=== PATIENT | male | born 1980 | race Caucasian/White ===

== ENCOUNTER 2021-10-18 21:37 | Emergency (ER) | payer SELFPAY ==
[~2021-10-18] VITALS: Ht 175 cm; Wt 81.6 kg
[2021-10-18 21:45] VITALS: BP 106/86
[2021-10-18] MEDS ORDERED: NS IV 1000 ML 1,000 ML IV SCH (22:00)
[2021-10-18] MEDS ORDERED: ACETAMINOPHEN 325 MG TABLET PO ONE (22:00)
[2021-10-18 22:08] LABS: BASOPHILS # (AUTO) 0.1 10^3/uL (0.0-0.1); BASOPHILS % (AUTO) 1 % (0-10); EOSINOPHILS # (AUTO) 0.1 10^3/uL (0.0-0.3); EOSINOPHILS % (AUTO) 0 % (0-10); HEMATOCRIT 43 % (40-54); HEMOGLOBIN 15.3 g/dL (13.3-17.7); LYMPHOCYTES # (AUTO) 1.1 10^3/uL (1.0-4.0); LYMPHOCYTES % (AUTO) 6 % (12-44); MEAN CORPUSCULAR HEMOGLOBIN 31 pg (25-34); MEAN CORPUSCULAR HGB CONC 35 g/dL (32-36); MEAN CORPUSCULAR VOLUME 87 fL (80-99); MEAN PLATELET VOLUME 10.5 fL (9.0-12.2); MONOCYTES # (AUTO) 1.7 10^3/uL (0.0-1.0); MONOCYTES % (AUTO) 9 % (0-12); NEUTROPHILS # (AUTO) 16.5 10^3/uL (1.8-7.8); NEUTROPHILS % (AUTO) 82 % (42-75); PLATELET COUNT 254 10^3/uL (130-400)
[2021-10-18 22:34] LABS: BAND NEUTROPHILS 12 %; BASOPHILS % (MANUAL) 0 %; EOSINOPHILS % (MANUAL) 0 %; LYMPHOCYTES % (MANUAL) 12 %; MONOCYTES % (MANUAL) 11 %; NEUTROPHILS % (MANUAL) 65 %; TOXIC GRANULATION/VACUOLAZATIO 1+
[2021-10-18 22:35] LABS: PROTHROMBIN TIME PATIENT 13.2 SEC (12.2-14.7)
[2021-10-18] MEDS ORDERED: NS IV 1000 ML 1,000 ML IV STA (22:41)
[2021-10-18] MEDS ORDERED: MEROPENEM 1,000 MG in NS (IVPB) 100 ML IV STA (22:41)
[2021-10-18] MEDS ORDERED: NS 100 ML (IVPB) BAG IV ONE (22:45)
[2021-10-18] MEDS ORDERED: CATHETER FLUSH 10 ML SYR IV PRN (22:45)
[2021-10-18] MEDS ORDERED: HOLD METFORMIN - RECEIVED CONTRAST 20 ML VIAL IV SCH (22:45)
[2021-10-18] MEDS ORDERED: IOHEXOL 350 MG/ML 100 ML (OMNIPAQUE 350) VIAL IV ONE (22:45)
[2021-10-18 22:47] LABS: BUN/CREATININE RATIO 17; CARBON DIOXIDE 23 MMOL/L (21-32); CHLORIDE 95 MMOL/L (98-107); CREATININE SERUM 1.28 MG/DL (0.60-1.30); GFR ESTIMATED 73; SODIUM 132 MMOL/L (135-145)
[2021-10-18 22:48] LABS: ALANINE AMINOTRANSFERASE 13 U/L (0-55); ALBUMIN 3.2 GM/DL (3.2-4.5); ALKALINE PHOSPHATASE 146 U/L (40-136); GLUCOSE 146 MG/DL (70-105); TOTAL PROTEIN 7.1 GM/DL (6.4-8.2)
[2021-10-18] MEDS ORDERED: MEROPENEM 500 MG VIAL (MERREM) IV ONE (22:52)
--- NOTE | 2021-10-18 23:16 | ED General ---
General Chief Complaint: Abdominal/GI Problems Stated Complaint: FEVER, LOWER ABD PAIN Nursing Triage Note: Pt c/o lower abd pain x 2 days and pain with urination. Pt reports he only has 1 kidney and stated "I haven't been drinking that much water because I can't be peeing all day." Pt denies n/v but reports diarrhea. Source of Information: Patient History of Present Illness Date Seen by Provider: Oct 18, 2021 Time Seen by Provider: 21:48 Initial Comments 40-year-old male presenting with complaints of increasing lower abdominal pain and right buttock pain. He states that he has had drainage from sore on his right buttock for the last 2 days as well. He has been having looser stools as well. He felt like he was having a fever and states that he had a temperature of 105 Fahrenheit on Sunday when he was seen at [place]. He states that at [place] they told him that he probably had COVID and to go home and quarantine. After he did left she started developed this drainage from the area on his butt cheek. Rather than go back to [place] he came here to be evaluated. He felt like he was having general body aches, subjective fever and chills, pain in the abdomen and right butt cheek going into his right leg Timing/Duration: 2-3 Days Severity: Severe Modifying Factors: worse with Eating, worse with Movement Associated Systoms: No Chest Pain, No Cough; Diaphoresis, Fever/Chills (S ubjective); No Headaches; Loss of Appetite, Malaise; No Nausea/Vomiting, No Rash, No Seizure, No Shortness of Air, No Syncope, No Weakness Allergies and Home Medications Allergies Coded Allergies: Penicillins (Verified Allergy, Unknown, 10/18/21) Patient Home Medication List Home Medication List Reviewed: Yes Review of Systems Review of Systems Constitutional: chills, fever (Subjective), malaise EENTM: no symptoms reported Respiratory: no symptoms reported Cardiovascular: no symptoms reported Gastrointestinal: see HPI Genitourinary: decreased output Musculoskeletal: see HPI Skin: change in color (Redness to his right butt cheek and brown-colored drainage from sore near his perineum) Psychiatric/Neurological: Anxiety Hematologic/Lymphatic: Denies Blood Clots Past Pforgxa-Ditvfu-Uffbxk Hx Patient Social History Tobacco Use?: Yes Tobacco type used: Cigarettes Use of E-Cig and/or Vaping dev: No Substance use?: No Alcohol Use?: No Past Medical History Surgeries: Yes Appendectomy Physical Exam Vital Signs Vital Signs - First Documented 10/18/21 21:45 Temp 36.4 Pulse 129 Resp 18 B/P (MAP) 106/86 (93) Pulse Ox 98 O2 Delivery Room Air Capillary Refill : Less Than 3 Seconds Height, Weight, BMI Height: '" Weight: lbs. oz. kg; 26.00 BMI Method: General Appearance: Anxious, Moderate Distress HEENT: PERRL/EOMI, Pharynx Normal, Moist Mucous Membranes Neck: Full Range of Motion, Normal Inspection, Non Tender, Supple Respiratory: Chest Non Tender, Lungs Clear, Normal Breath Sounds, No Accessory Muscle Use, No Respiratory Distress Cardiovascular: No Murmur, Normal Peripheral Pulses, Tachycardia Gastrointestinal: Normal Bowel Sounds, No Pulsatile Mass; No Soft (Diffuse guarding and firmness to palpation); Distended, Guarding; No Rebound; Tenderness (Diffuse tenderness to palpation) Rectal: Deferred Back: No CVA Tenderness, No Vertebral Tenderness Extremity: Normal Capillary Refill, Normal Inspection, No Pedal Edema Neurologic/Psychiatric: Alert, Oriented x3, respiratory services manager II-XII Norm as Tested Skin: Warm/Dry, Erythema (Right buttock) Focused Exam Lactate Level 10/18/21 21:55: Lactic Acid Level 1.89 Lactic Acid Level Laboratory Tests Test 10/18/21 21:55 Lactic Acid Level 1.89 MMOL/L (0.50-2.00) Progress/Results/Core Measures Suspected Sepsis SIRS Temperature: Pulse: 129 Respiratory Rate: 18 Laboratory Tests 10/18/21 21:55: White Blood Count 20.0H Blood Pressure 106 /86 Mean: 93 10/18/21 21:55: Lactic Acid Level 1.89 Laboratory Tests 10/18/21 21:55: Creatinine 1.28, INR Comment 1.0, Platelet Count 254, Total Bilirubin 1.0 Results/Orders Lab Results Laboratory Tests Test 10/18/21 01:20 10/18/21 21:55 10/18/21 22:03 Range/Units Urine Color YELLOW Urine Clarity CLEAR Urine pH 6.0 5-9 Urine Specific [place] <=1.005 1.016-1.022 Urine Protein 2+ H NEGATIVE Urine Glucose (UA) NEGATIVE NEGATIVE Urine Ketones NEGATIVE NEGATIVE Urine Nitrite NEGATIVE NEGATIVE Urine Bilirubin NEGATIVE NEGATIVE Urine Urobilinogen 1.0 < = 1.0 MG/DL Urine Leukocyte Esterase NEGATIVE NEGATIVE Urine RBC (Auto) 1+ H NEGATIVE Urine RBC RARE /HPF Urine WBC RARE /HPF Urine Squamous Epithelial Cells NONE /HPF Urine Crystals NONE /LPF Urine Bacteria TRACE /HPF Urine Casts NONE /LPF Urine Mucus SMALL H /LPF Urine Culture Indicated NO Urine Opiates Screen NEGATIVE NEGATIVE Urine Oxycodone Screen NEGATIVE NEGATIVE Urine Methadone Screen NEGATIVE NEGATIVE Urine Propoxyphene Screen NEGATIVE NEGATIVE Urine Barbiturates Screen NEGATIVE NEGATIVE Ur Tricyclic Antidepressants Screen NEGATIVE NEGATIVE Urine Phencyclidine Screen NEGATIVE NEGATIVE Urine Amphetamines Screen NEGATIVE NEGATIVE Urine Methamphetamines Screen NEGATIVE NEGATIVE Urine Benzodiazepines Screen NEGATIVE NEGATIVE Urine Cocaine Screen NEGATIVE NEGATIVE Urine Cannabinoids Screen POSITIVE H NEGATIVE White Blood Count 20.0 H 4.3-11.0 10^3/uL Red Blood Count 5.02 4.30-5.52 10^6/uL Hemoglobin 15.3 13.3-17.7 g/dL Hematocrit 43 40-54 % Mean Corpuscular Volume 87 80-99 fL Mean Corpuscular Hemoglobin 31 25-34 pg Mean Corpuscular Hemoglobin Concent 35 32-36 g/dL Red Cell Distribution Width 12.9 10.0-14.5 % Platelet Count 254 130-400 10^3/uL Mean Platelet Volume 10.5 9.0-12.2 fL Immature Granulocyte % (Auto) 2 % Neutrophils (%) (Auto) 82 H 42-75 % Lymphocytes (%) (Auto) 6 L 12-44 % Monocytes (%) (Auto) 9 0-12 % Eosinophils (%) (Auto) 0 0-10 % Basophils (%) (Auto) 1 0-10 % Neutrophils # (Auto) 16.5 H 1.8-7.8 10^3/uL Lymphocytes # (Auto) 1.1 1.0-4.0 10^3/uL Monocytes # (Auto) 1.7 H 0.0-1.0 10^3/uL Eosinophils # (Auto) 0.1 0.0-0.3 10^3/uL Basophils # (Auto) 0.1 0.0-0.1 10^3/uL Immature Granulocyte # (Auto) 0.5 H 0.0-0.1 10^3/uL Neutrophils % (Manual) 65 % Lymphocytes % (Manual) 12 % Monocytes % (Manual) 11 % Eosinophils % (Manual) 0 % Basophils % (Manual) 0 % Band Neutrophils 12 % Toxic Granulation 1+ Prothrombin Time 13.2 12.2-14.7 SEC INR Comment 1.0 0.8-1.4 Activated Partial Thromboplast Time 26 24-35 SEC Sodium Level 132 L 135-145 MMOL/L Potassium Level 4.0 3.6-5.0 MMOL/L Chloride Level 95 L 98-107 MMOL/L Carbon Dioxide Level 23 21-32 MMOL/L Anion Gap 14 5-14 MMOL/L Blood Urea Nitrogen 22 H 7-18 MG/DL Creatinine 1.28 0.60-1.30 MG/DL Estimat Glomerular Filtration Rate 73 BUN/Creatinine Ratio 17 Glucose Level 146 H 70-105 MG/DL Lactic Acid Level 1.89 0.50-2.00 MMOL/L Calcium Level 9.0 8.5-10.1 MG/DL Corrected Calcium 9.6 8.5-10.1 MG/DL Total Bilirubin 1.0 0.1-1.0 MG/DL Aspartate Amino Transf (AST/SGOT) 32 5-34 U/L Alanine Aminotransferase (ALT/SGPT) 13 0-55 U/L Alkaline Phosphatase 146 H 40-136 U/L Troponin I < 0.30 <0.30 NG/ML C-Reactive Protein 39.29 H <0.50 MG/DL Total Protein 7.1 6.4-8.2 GM/DL Albumin 3.2 3.2-4.5 GM/DL Influenza Type A (RT-PCR) Not Detected Not Detecte Influenza Type B (RT-PCR) Not Detected Not Detecte SARS-CoV-2 RNA (RT-PCR) Not Detected Not Detecte My Orders Orders - MARI CASON MD Monitor-Rhythm Ecg Trace Only (10/18/21 22:00) Ed Iv/Invasive Line Start (10/18/21 22:00) Cbc With Automated Diff (10/18/21 22:00) Comprehensive Metabolic Panel (10/18/21 22:00) Crp Fs (10/18/21 22:00) Troponin I Fs (10/18/21 22:00) Protime With Inr (10/18/21 22:00) Partial Thromboplastin Time (10/18/21 22:00) Ekg Tracing (10/18/21 22:00) Ns Iv 1000 Ml (Sodium Chloride 0.9%) (10/18/21 22:00) Acetaminophen Tablet/Caplet (Tylenol T (10/18/21 22:00) Blood Culture (10/18/21 22:00) Covid 19 Inhouse Test (10/18/21 22:00) Ua Culture If Indicated (10/18/21 22:00) Drug Screen Stat (Urine) (10/18/21 22:00) Lactic Acid Analyzer (10/18/21 22:00) Influenza A And B By Pcr (10/18/21 22:00) Isolation Central Supply Req (10/18/21 22:00) Manual Differential (10/18/21 21:55) Ct Abdomen/Pelvis W (10/18/21 22:39) Ns Iv 1000 Ml (Sodium Chloride 0.9%) (10/18/21 22:41) Meropenem (Merrem 1000 Mg) (10/18/21 22:41) Iohexol Injection (Omnipaque 350 Mg/Ml 1 (10/18/21 22:45) Received Contrast (Hold Metformin- Contr (10/18/21 22:45) Sodium Chloride Flush (Catheter Flush Sy (10/18/21 22:45) Ns (Ivpb) (Sodium Chloride 0.9% Ivpb Bag (10/18/21 22:45) Meropenem (Merrem 500 Mg) (10/18/21 22:52) Wound Culture (10/18/21 23:12) Ns Iv 1000 Ml (Sodium Chloride 0.9%) (10/19/21 01:10) Schmitt Cath (10/19/21 01:10) Vancomycin Injection (Vancomycin Injecti (10/19/21 02:12) Lactated Ringers (Lr 1000 Ml Iv Solution (10/19/21 02:12) Fentanyl Inj (Sublimaze Injection) (10/19/21 02:12) Medications Given in ED Current Medications Medications Dose Ordered Sig/Annetta Route Start Time Stop Time Status Last Admin Dose Admin Acetaminophen 650 mg ONCE ONCE PO 10/18/21 22:00 10/18/21 22:04 DC 10/18/21 22:12 650 MG Iohexol 100 ml ONCE ONCE IV 10/18/21 22:45 10/18/21 22:46 DC 10/18/21 23:08 75 ML Vital Signs/I&O 10/18/21 10/18/21 10/18/21 10/19/21 21:45 22:45 23:15 00:00 Temp 36.4 Pulse 129 95 94 81 Resp 18 18 18 17 B/P (MAP) 106/86 (93) 120/78 113/80 115/75 Pulse Ox 98 96 97 96 O2 Delivery Room Air Room Air Room Air Room Air 10/19/21 10/19/21 10/19/21 10/19/21 00:30 01:00 01:30 02:00 Pulse 71 90 91 87 Resp 20 18 22 B/P (MAP) 107/81 119/81 141/83 117/77 Pulse Ox 96 96 96 97 O2 Delivery Room Air Room Air Room Air Room Air 10/19/21 10/19/21 02:30 03:00 Pulse 87 96 Resp 24 23 B/P (MAP) 140/81 125/75 Pulse Ox 96 96 O2 Delivery Room Air Room Air Capillary Refill : Less Than 3 Seconds Blood Pressure Mean: 93 Progress Note #1: Progress Note Obtain labs and blood cultures as well as COVID and influenza. Order CT scan to evaluate his abdomen and pelvis. Culture of the drainage from the area on his butt cheek. Give IV fluids for hydration, 650 mg acetaminophen for pain and subjective fever. Progress Note #2: Progress Note Laceration White blood cell count of 20,000 with 12% bandemia. He had chemistry showing elevated CRP. His creatinine was 1.28. He felt like he needed to pee but was unable to. COVID and flu were both negative. Patient was feeling a little better as fluids infused. Progress Note #3: Progress Note 0015 CT scan of the abdomen pelvis with IV contrast showed pockets of air in the right buttock and tissues. This seemed to extend into the pelvis and the right thigh. I called and spoke with the on-call surgeon Dr. Stein. After he review ed the images he recommended that the patient be transferred to more tertiary center that would have more services than [facility]. He felt that the patient was going to require multiple surgeries and probably revisions to manage his extensive areas of air in the tissues. Given meropenem 1 g IV based off of her sepsis order set for intra-abdominal infections. 0033 call placed to [facility] access center to initiate transfer to [facility] and [facility] facility. These would be the closest facilities that would have ICU and surgery assistant loan processor as recommended by Dr. Stein. All the transfer nurses were on other calls and one of the office staff took my information and will have a nurse call me back [phone] Destiny Huston RN, called to let me know that all the facilities for [facility] are closed to transfer other than [facility] and [place]. Will check with pt and see if that is acceptable. 0108 Pt and family agreeable to go to [place] so I called [facility] Access Center back. They will work on contacting the hospitalist at [place] and call me back. 0208 Dr. So with [place] called back via the [facility] and accepted the patient in transfer. He requested that we give Vancomycin 1 gm IV for a loading dose to the patient. Pt will be ED hold for PCU bed. 0241 I spoke with [facility] again and YING Luis, said we could have EMS activate to start transporting the patient since it was such a long drive and they were accepted but going to ED as a hold. ECG Initial ECG Impression Date: Oct 18, 2021 Initial ECG Impression Time: 22:39 Initial ECG Rate: 98 Initial ECG Rhythm: Normal Sinus Initial ECG Comparisson: No Previous ECG Available Comment Normal sinus rhythm with a heart rate of 90 bpm. AR interval [address] elevation. QT interval 316 ms with a QTC of 372 ms. There is no prior tracing available for comparison. Diagnostic Imaging Diagonstic Imaging: CT Plain Films/CT/US/NM/MRI: abdomen, pelvis Comments 0012 Dr. Unruly Alejo MD called and spoke with me about CT of the abdomen and pelvis with IV contrast. Impression: 1. There is subcutaneous emphysema throughout the right buttock tracking into the right perirectal space. This also extends around the anterior pelvis between the urinary bladder and abdominal wall tracks up along the anterior abdominal wall but remains extraperitoneal. Consider infection with gas-forming organism. 2. Subcutaneous emphysema from the pelvis also tracks into the anterior aspect of the right upper thigh. No discrete abscess. 3. Scattered gas fluid levels throughout a distended proximal and mid small bowel loops. The distal small bowel is nondistended consider severe ileus versus low-grade bowel obstruction. No pneumoperitoneum or free intraperitoneal fluid is seen. 4. Severe left hydronephrosis with dilatation of the left renal pelvis to 14 cm and atrophy of the left renal parenchyma. The left ureter is nondistended. 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 Study was read at 2320 and faxed at 0010 Reviewed: Discussed w/Radiologist Departure Impression Primary Impression: Necrotizing fasciitis of pelvic region and thigh Additional Impressions: Sepsis Qualified Codes: A41.9 - Sepsis, unspecified organism Abdominal pain, generalized Disposition: 02 XFER SHT-TRM HOSP Condition: Stable Transfer Transfer Reason: Exceeds level of care Time Spoke to Accepting Phy: 02:08 Transfer Progress Notes Discussed with Dr. So about transfer to [place] for higher level of surgical care than what is available locally and that other closer facilities we re closed to transfers. He was accepted in transfer but Dr. So did request Vancomycin be added to the regimen. Transfer Facility: Method of Transfer: EMS Departure-Patient Inst. Referrals: NO,LOCAL PHYSICIAN (PCP/Family) Primary Care Physician MARI CASON MD Oct 18, 2021 23:16
[2021-10-19] MEDS ORDERED: NS IV 1000 ML 1,000 ML IV STA (01:10)
[2021-10-19 01:32] LABS: BILIRUBIN,URINE NEGATIVE (NEGATIVE); CLARITY,URINE CLEAR; COLOR,URINE YELLOW; GLUCOSE, URINE (UA) NEGATIVE (NEGATIVE); KETONES,URINE NEGATIVE (NEGATIVE); LEUKOCYTE ESTERASE ,URINE NEGATIVE (NEGATIVE); NITRITE,URINE NEGATIVE (NEGATIVE); PROTEIN,URINE 2+ (NEGATIVE)
[2021-10-19 01:37] LABS: BACTERIA,URINE TRACE /HPF; RBC,URINE RARE /HPF; WBC,URINE RARE /HPF
[2021-10-19 01:43] LABS: AMPHETAMINE SCREEN, URINE NEGATIVE (NEGATIVE); BARBITURATE SCREEN URINE NEGATIVE (NEGATIVE); BENZODIAZEPINES SCREEN URINE NEGATIVE (NEGATIVE); CANNABINOID SCREEN, URINE POSITIVE (NEGATIVE); COCAINE SCREEN URINE NEGATIVE (NEGATIVE); METHADONE STAT NEGATIVE (NEGATIVE); OPIATE SCREEN URINE NEGATIVE (NEGATIVE); OXYCODONE STAT NEGATIVE (NEGATIVE); PROPOXYPHENE STAT NEGATIVE (NEGATIVE); TRICYCLIC ANTIDEPRESSANTS SCRE NEGATIVE (NEGATIVE)
[2021-10-19] MEDS ORDERED: fentaNYL INJ 100 MCG/2 ML AMP IVP STA (02:12)
[2021-10-19] MEDS ORDERED: VANCOMYCIN INJECTION 1,000 MG in NS (IVPB) 250 ML IV STA (02:12)
[2021-10-19] MEDS ORDERED: LACTATED RINGERS 1,000 ML IV STA (02:12)
--- NOTE | 2021-10-19 08:21 | Diagnostic Imaging Report ---
PROCEDURE: CT abdomen and pelvis with contrast. TECHNIQUE: Multiple contiguous axial images were obtained through the abdomen and pelvis after administration of intravenous contrast. Auto Exposure Controls were utilized during the CT exam to meet ALARA standards for radiation dose reduction. All CT scans use one or more of the following dose optimizing techniques: automated exposure control, MA and/or KvP adjustment based on patient size and exam type or iterative reconstruction. DATE: October 18, 2021. COMPARISON: None. INDICATION: 40-year-old male, fever. Gluteal abscess. Abdominal pain. FINDINGS: There are mild linear opacities in the lingula likely reflecting atelectasis. The heart is not enlarged. There is no pericardial effusion. The liver is unremarkable in size and contour. There is a low-attenuation lesion in the right lobe of liver on axial image 53 which measures 10 mm in size. Internal attenuation is consistent with a benign cyst at -3 Hounsfield units. The main, right, and left portal veins are patent. The gallbladder is unremarkable. There is no intrahepatic or extrahepatic bile duct dilation. The main hepatic duct is not abnormally dilated. Unremarkable appearance of the pancreatic parenchyma. The spleen is normal in size. The adrenal glands are unremarkable. There is severe left hydronephrosis. There is no dilation of the left ureter. There is no right hydronephrosis. There is prominent left cortical thinning and left renal atrophy. There are dilated fluid-filled segments of small bowel such as on axial image 163 measuring up to 4.1 cm in diameter. The colon is not abnormally distended. There is prominent abnormal gas and inflammatory stranding in the right side of the perineum and posterior right gluteal region. There is prominent abnormal gas at the level of the pelvis and lower abdomen which appears to be extraperitoneal in location. There is prominent additional abnormal soft tissue gas in the right anterior thigh compartment including in the intramuscular fascia. There is mild adjacent inflammatory stranding. There is also abnormal gas in the left rectus abdominis musculature on axial image 151 and adjacent sequential images. There is mild asymmetric enlargement of the left rectus abdominis muscle. There is no identified acute bony abnormality. IMPRESSION: CT ABDOMEN AND PELVIS. 1. Extensive abnormal soft tissue gas in the right side of the perineum on the right gluteal region including prominent abnormal gas extraperitoneal in location at the level of the pelvis and lower abdomen as well as in the right anterior thigh compartment and left rectus abdominis muscle. This is concerning for a necrotizing process including Vern's gangrene, necrotizing fascitis, and/or aggressive infectious process, and possible intramuscular abscess at the left rectus abdominis. 2. Fluid-filled dilated segments of small bowel which may be a reactive ileus or secondary to small bowel obstruction. 3. Severe left hydronephrosis with prominent left renal cortical thinning and renal atrophy likely reflecting a UPJ obstruction. Dictated by: Dictated on workstation # [id number]
== END 2021-10-19 03:40 | disposition short-term general hospital (02) ==
LOC: ER FS 21:40
DX: A41.9 Sepsis, unspecified organism (principal); M72.6 Necrotizing fasciitis; R10.84 Generalized abdominal pain; R79.82 Elevated C-reactive protein (CRP); F17.210 Nicotine dependence, cigarettes, uncomplicated; Z20.822 Contact with and (suspected) exposure to COVID-19; Z28.310 Unvaccinated for COVID-19
CPT/HCPCS: 36415; 51702; 74177; 80053; 80306; 81000; 83605; 84484; 85007; 85027; 85610; 85730; 86141; 87040; 87070; 87205; 87636; 93005; 93041